=== PATIENT | male | born 1935 | race Asian ===

== ENCOUNTER 2018-08-14 08:00 | Outpatient (CLI) | payer MEDICARE, MEDICAID ==
[2018-08-14 19:43] LABS: BASOPHILS % (AUTO) 0.8 %; EOSINOPHILS % (AUTO) 0.7 %; HGB - HEMOGLOBIN 13.9 g/dL (14.0-18.0); LYMPHOCYTES # (AUTO) 1.4 10^3/uL (1.5-3.5); MEAN CORPUSCULAR HEMOGLOBIN 30.2 pg (27.0-31.0); MEAN CORPUSCULAR HGB CONC 32.8 g/dL (32.0-36.0); MEAN CORPUSCULAR VOLUME 92.2 fL (80.0-94.0); MEAN PLATELET VOLUME 8.8 fL (7.4-11.4); MONOCYTES # (AUTO) 0.3 10^3/uL (0.0-1.0); MONOCYTES % (AUTO) 5.7 %; NEUTROPHILS # (AUTO) 3.4 10^3/uL (1.5-6.6); NEUTROPHILS % (AUTO) 65.8 %; PLT - PLATELET COUNT 421 10^3/uL (130-450); RED BLOOD COUNT 4.58 10^6/uL (4.70-6.10); RED CELL DISTRIBUTION WIDTH 15.1 % (12.0-15.0); WHITE BLOOD COUNT 5.1 x10^3/uL (4.8-10.8)
[2018-08-14 20:03] LABS: PSA FREE 1.061 ng/mL (0.16-2.81)
[2018-08-14 20:04] LABS: PSA TOTAL 16.102 ng/mL (0.000-2.000)
[2018-08-14 20:10] LABS: CREATININE 1.2 mg/dL (0.6-1.2)
== END 2018-08-14 23:59 | disposition home or self-care (01) ==
LOC: LAB.N 08:00
PROVIDERS: ATTEND Physician Assistant Medical
DX: Z00.00 Encounter for general adult medical examination without abnormal findings (principal); N40.0 Benign prostatic hyperplasia without lower urinary tract symptoms
CPT/HCPCS: 36415; 80048; 84153; 84154; 84443; 85025

== ENCOUNTER 2020-03-08 08:00 | Outpatient (CLI) | payer MEDICARE, MEDICAID ==
[2020-03-08 18:17] LABS: BASOPHILS # (AUTO) 0.1 10^3/uL (0.0-0.1); BASOPHILS % (AUTO) 1.1 %; EOSINOPHILS # (AUTO) 0.1 10^3/uL (0.0-0.7); EOSINOPHILS % (AUTO) 1.1 %; HGB - HEMOGLOBIN 14.2 g/dL (14.0-18.0); LYMPHOCYTES # (AUTO) 1.8 10^3/uL (1.5-3.5); LYMPHOCYTES % (AUTO) 25.6 %; MEAN CORPUSCULAR HEMOGLOBIN 29.9 pg (27.0-31.0); MEAN CORPUSCULAR HGB CONC 32.6 g/dL (32.0-36.0); MEAN CORPUSCULAR VOLUME 91.8 fL (80.0-94.0); MEAN PLATELET VOLUME 10.1 fL (7.4-11.4); MONOCYTES # (AUTO) 0.4 10^3/uL (0.0-1.0); MONOCYTES % (AUTO) 5.5 %; NEUTROPHILS # (AUTO) 4.7 10^3/uL (1.5-6.6); NEUTROPHILS % (AUTO) 66.3 %; PLT - PLATELET COUNT 572 10^3/uL (130-450); RED BLOOD COUNT 4.75 10^6/uL (4.70-6.10); RED CELL DISTRIBUTION WIDTH 14.1 % (12.0-15.0); WHITE BLOOD COUNT 7.2 x10^3/uL (4.8-10.8)
[2020-03-08 18:51] LABS: ALBUMIN 3.8 g/dL (3.2-5.5); ALBUMIN/GLOBULIN RATIO 1.1 (1.0-2.2); BILIRUBIN,TOTAL 0.4 mg/dL (0.2-1.0); CREATININE 1.1 mg/dL (0.6-1.2); TOTAL PROTEIN 7.3 g/dL (6.7-8.2)
[2020-03-08 19:00] LABS: PSA FREE 1.173 ng/mL (0.16-2.81)
[2020-03-08 19:01] LABS: PSA TOTAL 16.542 ng/mL (0.000-2.000)
== END 2020-03-08 23:59 | disposition home or self-care (01) ==
LOC: LAB.WCP 08:00
PROVIDERS: ATTEND Nurse Practitioner
DX: N40.0 Benign prostatic hyperplasia without lower urinary tract symptoms (principal); Z79.899 Other long term (current) drug therapy
CPT/HCPCS: 36415; 80053; 84153; 84154; 85025

== ENCOUNTER 2021-03-15 08:00 | Outpatient (CLI) | payer MEDICARE, MEDICAID ==
[2021-03-15 11:28] LABS: BASOPHILS # (AUTO) 0.1 10^3/uL (0.0-0.1); BASOPHILS % (AUTO) 1.4 %; EOSINOPHILS # (AUTO) 0.2 10^3/uL (0.0-0.7); EOSINOPHILS % (AUTO) 2.5 %; HCT - HEMATOCRIT 45.2 % (42.0-52.0); HGB - HEMOGLOBIN 14.5 g/dL (14.0-18.0); LYMPHOCYTES # (AUTO) 2.8 10^3/uL (1.5-3.5); LYMPHOCYTES % (AUTO) 39.7 %; MEAN CORPUSCULAR HEMOGLOBIN 29.2 pg (27.0-31.0); MEAN CORPUSCULAR HGB CONC 32.1 g/dL (32.0-36.0); MEAN CORPUSCULAR VOLUME 91.1 fL (80.0-94.0); MEAN PLATELET VOLUME 9.9 fL (7.4-11.4); MONOCYTES # (AUTO) 0.4 10^3/uL (0.0-1.0); MONOCYTES % (AUTO) 5.9 %; NEUTROPHILS # (AUTO) 3.6 10^3/uL (1.5-6.6); NEUTROPHILS % (AUTO) 50.4 %; PLT - PLATELET COUNT 601 10^3/uL (130-450); RED BLOOD COUNT 4.96 10^6/uL (4.70-6.10); RED CELL DISTRIBUTION WIDTH 14.8 % (12.0-15.0); WHITE BLOOD COUNT 7.1 x10^3/uL (4.8-10.8)
[2021-03-15 11:44] LABS: ALBUMIN 3.7 g/dL (3.2-5.5); ALBUMIN/GLOBULIN RATIO 1.1 (1.0-2.2); BILIRUBIN,TOTAL 0.8 mg/dL (0.2-1.0); CREATININE 0.9 mg/dL (0.6-1.2); POTASSIUM 4.2 mmol/L (3.5-5.0); TOTAL PROTEIN 7.1 g/dL (6.7-8.2)
[2021-03-15 12:09] LABS: THYROID STIMULATING HORMONE 2.6 uIU/mL (0.34-5.60)
[2021-03-15 12:15] LABS: ESTIMATED AVERAGE GLUCOSE 120 mg/dL (70-100); HEMOGLOBIN A1c% 5.8 % (4.27-6.07)
== END 2021-03-15 23:59 | disposition home or self-care (01) ==
LOC: LAB.WCP 08:00
PROVIDERS: ATTEND Nurse Practitioner
DX: R53.83 Other fatigue (principal); R63.1 Polydipsia
CPT/HCPCS: 36415; 80053; 83036; 84443; 85025

== ENCOUNTER 2021-08-15 10:01 | Outpatient (CLI) | payer MEDICARE, MEDICAID ==
[2021-08-15 12:32] LABS: BASOPHILS # (AUTO) 0.1 10^3/uL (0.0-0.1); BASOPHILS % (AUTO) 1.4 %; EOSINOPHILS # (AUTO) 0.2 10^3/uL (0.0-0.7); EOSINOPHILS % (AUTO) 2.2 %; HCT - HEMATOCRIT 45.9 % (42.0-52.0); HGB - HEMOGLOBIN 14.7 g/dL (14.0-18.0); LYMPHOCYTES # (AUTO) 2.8 10^3/uL (1.5-3.5); LYMPHOCYTES % (AUTO) 38.4 %; MEAN CORPUSCULAR HEMOGLOBIN 28.5 pg (27.0-31.0); MEAN CORPUSCULAR VOLUME 89.1 fL (80.0-94.0); MEAN PLATELET VOLUME 9.8 fL (7.4-11.4); MONOCYTES # (AUTO) 0.4 10^3/uL (0.0-1.0); MONOCYTES % (AUTO) 5.2 %; NEUTROPHILS # (AUTO) 3.9 10^3/uL (1.5-6.6); NEUTROPHILS % (AUTO) 52.7 %; PLT - PLATELET COUNT 652 10^3/uL (130-450); RED BLOOD COUNT 5.15 10^6/uL (4.70-6.10); RED CELL DISTRIBUTION WIDTH 14.6 % (12.0-15.0); WHITE BLOOD COUNT 7.4 x10^3/uL (4.8-10.8)
== END 2021-08-15 10:02 | disposition home or self-care (01) ==
LOC: LAB.N 10:01
PROVIDERS: ATTEND Nurse Practitioner
DX: D75.839 Thrombocytosis, unspecified (principal)
CPT/HCPCS: 36415; 85025

== ENCOUNTER 2022-06-30 08:55 | Outpatient (CLI) | payer MEDICARE, MEDICAID ==
[2022-06-30 12:09] LABS: BASOPHILS # (AUTO) 0.1 10^3/uL (0.0-0.1); BASOPHILS % (AUTO) 1.6 %; EOSINOPHILS # (AUTO) 0.2 10^3/uL (0.0-0.7); HCT - HEMATOCRIT 44.5 % (42.0-52.0); LYMPHOCYTES # (AUTO) 3.9 10^3/uL (1.5-3.5); LYMPHOCYTES % (AUTO) 51.2 %; MEAN CORPUSCULAR HEMOGLOBIN 27.9 pg (27.0-31.0); MEAN CORPUSCULAR HGB CONC 31.5 g/dL (32.0-36.0); MEAN CORPUSCULAR VOLUME 88.8 fL (80.0-94.0); MEAN PLATELET VOLUME 10.2 fL (7.4-11.4); MONOCYTES # (AUTO) 0.5 10^3/uL (0.0-1.0); MONOCYTES % (AUTO) 5.9 %; NEUTROPHILS # (AUTO) 2.9 10^3/uL (1.5-6.6); NEUTROPHILS % (AUTO) 38.2 %; PLT - PLATELET COUNT 551 10^3/uL (130-450); RED BLOOD COUNT 5.01 10^6/uL (4.70-6.10); RED CELL DISTRIBUTION WIDTH 14.8 % (12.0-15.0); WHITE BLOOD COUNT 7.6 x10^3/uL (4.8-10.8)
[2022-06-30 13:11] LABS: ESTIMATED AVERAGE GLUCOSE 131 mg/dL (70-100); HEMOGLOBIN A1c% 6.2 % (4.27-6.07)
[2022-06-30 13:52] LABS: ALBUMIN 3.2 g/dL (3.2-5.5); ALKALINE PHOSPHATASE 62 IU/L (42-121); ALT ALANINE AMINOTRANSFERASE 19 IU/L (10-60); AST ASPARTATE AMINOTRANSFERASE 24 IU/L (10-42); BILIRUBIN,TOTAL 0.8 mg/dL (0.2-1.0); BUN - BLOOD UREA NITROGEN 25 mg/dL (6-20); CALCIUM 8.9 mg/dL (8.5-10.3); CARBON DIOXIDE - CO2 26 mmol/L (21-32); CHLORIDE 102 mmol/L (101-111); CHOL/HDL RATIO 3.4 (<5.0); CHOLESTEROL 192 mg/dL; GFR - MDRD 71 (>89); GLUCOSE 90 mg/dL (70-100); HDL CHOLESTEROL 56 mg/dL; LDL CHOLESTEROL,CALCULATED 126 mg/dL; LDL/HDL RATIO 2.3 (<3.6); POTASSIUM 4.2 mmol/L (3.5-5.0); SODIUM 139 mmol/L (135-145); TOTAL PROTEIN 6.4 g/dL (6.7-8.2); TRIGLYCERIDES 52 mg/dL; VLDL CHOLESTEROL 10 mg/dL
[2022-06-30 13:55] LABS: THYROID STIMULATING HORMONE 2.22 uIU/mL (0.34-5.60)
== END 2022-06-30 08:56 | disposition home or self-care (01) ==
LOC: LAB.N 08:55
PROVIDERS: ATTEND Nurse Practitioner
DX: R53.83 Other fatigue (principal); Z13.220 Encounter for screening for lipoid disorders; R73.03 Prediabetes; D47.3 Essential (hemorrhagic) thrombocythemia
CPT/HCPCS: 36415; 80053; 80061; 83036; 83721; 84443; 85025

== ENCOUNTER 2022-10-24 23:26 | Emergency (ER) | payer MEDICARE, MEDICAID ==
[2022-10-25 01:01] LABS: BILIRUBIN,URINE NEGATIVE (NEGATIVE); GLUCOSE, URINE (UA) NEGATIVE (NEGATIVE); KETONES,URINE (UA) NEGATIVE (NEGATIVE); LEUKOCYTE ESTERASE, URINE NEGATIVE (NEGATIVE); NITRITE,URINE NEGATIVE (NEGATIVE); OCCULT BLOOD,URINE NEGATIVE (NEGATIVE); PROTEIN,URINE NEGATIVE (NEGATIVE); UROBILINOGEN,URINE 0.2 (NORMAL) E.U./dL (NORMAL)
[2022-10-25 01:02] LABS: CLARITY,URINE CLEAR (CLEAR)
--- NOTE | 2022-10-25 01:18 | ED Physician Documentation ---
PD HPI MALE - Stated complaint Stated Complaint: MALE - Chief complaint Chief Complaint: Abd Pain - History obtained from History obtained from: Patient, Family (family member at bedside) - Additional information Additional information: Patient c/o 2 weeks of episodic difficulty urinating. He describes episodes of urge to urinate with suprapubic fullness and pain with difficulty initiating uri nation. Symptoms resolve with urination. Tonight, he had more severe suprapubic pain and pressure with inability to urinate, but was able to urinate once he came to ED (when providing urine sample) and, again, his symptoms have resolved by the time of this evaluation. He is asymptomatic on my H+P Review of Systems Constitutional: denies: Fever, Chills, Sweats GI: denies: Abdominal Pain (suprapubic pain (resolved) but not abdominal pain per se), Nausea, Vomiting : reports: Unable to Void (intermittently), Other (decreasing urinary stream over past several weeks). denies: Dysuria, Frequency, Incontinent, Hematuria PD PAST MEDICAL HISTORY - Past Medical History : Benign prostate hypertrophy - Present Medications Home Medications: Ambulatory Orders Medication Instructions Recorded Confirmed Finasteride [Proscar] 5 mg PO DAILY 10/24/22 10/24/22 - Allergies Allergies/Adverse Reactions: Allergies Allergy/AdvReac Type Severity Reaction Status Date / Time No Known Drug Allergies Allergy Verified 10/24/22 23:37 PD ED PE NORMAL - Vitals Vital signs reviewed: Yes - General General: Alert and oriented X 3, No acute distress, Well developed/nourished - Abdomen Abdomen: Soft, Non tender, Non distended - Back Back: No CVA TTP Results - Vitals Vitals: Oxygen O2 Source Room air - Labs Labs: Laboratory Tests 10/25/22 00:00 Urine Color YELLOW Urine Clarity CLEAR Urine pH 5.0 Ur Specific [place] 1.025 Urine Protein NEGATIVE Urine Glucose (UA) NEGATIVE Urine Ketones NEGATIVE Urine Occult Blood NEGATIVE Urine Nitrite NEGATIVE Urine Bilirubin NEGATIVE Urine Urobilinogen 0.2 (NORMAL) Ur Leukocyte Esterase NEGATIVE Ur Microscopic Review NOT INDICATED Urine Culture Comments NOT INDICATED PD Medical Decision Making - ED course Complexity details: considered differential, d/w patient, d/w family ED course: asymptomatic on this evaluation. HPI is s/o intermittent urinary retention. Bladder scan by ED RN result is 18. He is on finasteride. Instructed to follow up with PMD for reevaluation, might benefit from urology referral. UA performed in ED, normal results. Return precautions discussed. Departure - Departure Disposition: 01 Home, Self Care Clinical Impression: Dysuria Condition: Good Instructions: ED Dysuria Uncertain Cause Comments: The urinalysis was normal tonight. There is no evidence of a urinary tract infection. The bladder scan that was performed at the bedside showed that your bladder was empty. However, this was performed after you have urinated. As we discussed, one possible explanation is that you are having episodes of urinary retention. The most common cause of this would be an enlarged prostate. You should follow-up with your primary care provider, next available appointment, for reevaluation. Ideally, following up with a urologist would be the most appropriate specialist to see. If you have a urologist, try to arrange follow- up with them. If you do not have a urologist, you can go through your primary care provider for a referral if necessary. Certainly, if your symptoms return, you can always come back to the emergency department for reevaluation. Discharge Date/Time: 10/25/22 01:49
[2022-10-25 01:45] VITALS: BP 150/76
== END 2022-10-25 01:49 | disposition home or self-care (01) ==
LOC: ED 23:26
DX: R30.0 Dysuria (principal)
CPT/HCPCS: 81001; 81003; 87086; 99283

== ENCOUNTER 2022-11-21 17:08 | Emergency (ER) | payer MEDICARE, MEDICAID ==
--- NOTE | 2022-11-21 17:28 | ED Physician Documentation ---
PD HPI ABD PAIN - Stated complaint Stated Complaint: BLOATED STOMACH - Chief complaint Chief Complaint: Abd Pain - History obtained from History obtained from: Patient - Additional information Additional information: 87-year-old gentleman with history of what sounds like perforated peptic ulcer in 1984, otherwise very healthy. He has had 3 days of abdominal distention and discomfort associated with nausea but no vomiting. He had some decreased output from his bowels but that got better after using Metamucil. Denies weight loss but he is fairly thin. He is here with his son. He declines pain or nausea medicine on initial evaluation. PD PAST MEDICAL HISTORY - Past Medical History Past Medical History: Yes Cardiovascular: None Respiratory: None Neuro: None Endocrine/Autoimmune: None GI: Ulcers : Benign prostate hypertrophy HEENT: None Psych: None Musculoskeletal: None Derm: None - Past Surgical History Past Surgical History: Yes General: Other - Present Medications Home Medications: Ambulatory Orders Medication Instructions Recorded Confirmed Finasteride [Proscar] 5 mg PO DAILY 10/24/22 11/21/22 Tamsulosin [Flomax] 0.4 mg PO DAILY 11/21/22 11/21/22 - Allergies Allergies/Adverse Reactions: Allergies Allergy/AdvReac Type Severity Reaction Status Date / Time No Known Drug Allergies Allergy Verified 11/21/22 17:12 - Social History Does the pt smoke?: No Smoking Status: Never smoker Does the pt drink ETOH?: No Does the pt have substance abuse?: No - Immunizations Immunizations are current?: Yes PD ED PE NORMAL - Vitals Vital signs reviewed: Yes - General General: Alert and oriented X 3, No acute distress, Other (Thin elderly gentle man appears stated age) - Cardiac Cardiac: RRR, No murmur - Respiratory Respiratory: No respiratory distress, Clear bilaterally - Abdomen Abdomen: Normal bowel sounds, Other (Distended and firm especially lower without specific tenderness.) - Derm Derm: Normal color, Warm and dry - Extremities Extremities: No edema, No calf tenderness / cord - Neuro Neuro: Alert and oriented X 3, Normal speech Results - Vitals Vitals: Vital Signs - 24 hr 11/21/22 17:12 Temperature 36.9 C Heart Rate 89 Respiratory 16 Rate Blood Pressure 152/90 H O2 Saturation 98 Oxygen O2 Source Room air - Labs Labs: Laboratory Tests 11/21/22 11/21/22 17:32 17:32 WBC 6.7 RBC 5.12 Hgb 14.2 Hct 44.2 MCV 86.3 MCH 27.7 MCHC 32.1 RDW 15.0 Plt Count 537 H MPV 9.5 Neut # (Auto) 3.2 Lymph # (Auto) 2.8 Lane # (Auto) 0.4 Eos # (Auto) 0.2 Baso # (Auto) 0.1 Absolute Nucleated RBC 0.00 Nucleated RBC % 0.0 Sodium 137 Potassium 4.1 Chloride 103 Carbon Dioxide 24 Anion Gap 10.0 BUN 27 H Creatinine 1.3 H Estimated GFR (MDRD) 52 L Glucose 112 H Calcium 8.3 L Total Bilirubin 0.5 AST 33 ALT 25 Alkaline Phosphatase 56 Total Protein 6.4 L Albumin 2.9 L Globulin 3.5 Albumin/Globulin Ratio 0.8 L Lipase 35 - Rads (name of study) CT abdomen pelvis with IV contrast demonstrates ascites with possible omental nodularity concerning for malignant process. Relevant Findings:: Final report received, EMP independent interpretation of test Procedures - Paracentesis - Major Preparation: Consent obtained, Ultrasound guidance Location: LLQ Technique: Other (18-gauge needle collecting 40 mL of yellow ascites after local anesthetic and ChloraPrep. Patient tolerated well.) Fluid: Sent for cytology PD Medical Decision Making - ED course ED course: 87-year-old gentleman presents with bloating. He is found to have new onset ascites. He is not a drinker nor a smoker. That said this is very concerning for malignant ascites. No evidence of liver disease on labs. After informed consent a diagnostic paracentesis was done to be sent for pathology to speed up diagnosis. Departure - Departure Disposition: 01 Home, Self Care Clinical Impression: Ascites Qualifiers: Ascites type: malignant Qualified Code(s): R18.0 - Malignant ascites Condition: Good Record reviewed to determine appropriate education?: Yes Instructions: ED Ascites Follow-Up: Ruthann Bardales ARNP [Provider Admit Priv/Credential] - Comments: You were seen today for abdominal swelling which unfortunately we found that you have fluid on your abdomen which is most likely related to a cancerous process. I did send some of the fluid to the pathologist and you can follow-up with your nurse practitioner in about a week to discuss results and if cancer is found a referral to oncology. Return for new or worsening symptoms.
[2022-11-21 17:38] LABS: BASOPHILS # (AUTO) 0.1 10^3/uL (0.0-0.1); BASOPHILS % (AUTO) 1.5 %; EOSINOPHILS # (AUTO) 0.2 10^3/uL (0.0-0.7); EOSINOPHILS % (AUTO) 3.1 %; HCT - HEMATOCRIT 44.2 % (42.0-52.0); HGB - HEMOGLOBIN 14.2 g/dL (14.0-18.0); LYMPHOCYTES # (AUTO) 2.8 10^3/uL (1.5-3.5); LYMPHOCYTES % (AUTO) 41.2 %; MEAN CORPUSCULAR HEMOGLOBIN 27.7 pg (27.0-31.0); MEAN CORPUSCULAR HGB CONC 32.1 g/dL (32.0-36.0); MEAN CORPUSCULAR VOLUME 86.3 fL (80.0-94.0); MEAN PLATELET VOLUME 9.5 fL (7.4-11.4); MONOCYTES # (AUTO) 0.4 10^3/uL (0.0-1.0); MONOCYTES % (AUTO) 6.4 %; NEUTROPHILS # (AUTO) 3.2 10^3/uL (1.5-6.6); NEUTROPHILS % (AUTO) 47.5 %; PLT - PLATELET COUNT 537 10^3/uL (130-450); RED BLOOD COUNT 5.12 10^6/uL (4.70-6.10); WHITE BLOOD COUNT 6.7 x10^3/uL (4.8-10.8)
[2022-11-21 17:49] LABS: ALBUMIN 2.9 g/dL (3.2-5.5); ALBUMIN/GLOBULIN RATIO 0.8 (1.0-2.2); BILIRUBIN,TOTAL 0.5 mg/dL (0.2-1.0); CALCIUM 8.3 mg/dL (8.5-10.3); CREATININE 1.3 mg/dL (0.6-1.2); POTASSIUM 4.1 mmol/L (3.5-5.0); TOTAL PROTEIN 6.4 g/dL (6.7-8.2)
[2022-11-21] MEDS ORDERED: iohexoL-300 100 ML VIAL ONE (17:59)
[2022-11-21] MEDS ORDERED: iohexoL-300 100 ML VIAL IVP ONE (18:29)
--- NOTE | 2022-11-21 18:33 | CT Report ---
PROCEDURE: ABDOMEN/PELVIS W INDICATIONS: IV only abd pain CONTRAST: 100mL Omni 300 TECHNIQUE: After the administration of contrast, 5 mm thick sections acquired from the diaphragms to the symphys is. 5 mm thick coronal and sagittal reformats were acquired. For radiation dose reduction, the foll owing was used: automated exposure control, adjustment of mA and/or kV according to patient size. COMPARISON: FINDINGS: Image quality: Excellent. Lung bases and heart: Small bilateral pleural effusions. Liver: The liver has a normal appearance. There is moderate ascites throughout the abdomen. Gallbladder and biliary tree: No stones. No wall thickening or pericholecystic fluid. Spleen: No splenomegaly. Pancreas: No pancreatic ductal dilation. Adrenals: No adrenal nodule. Kidneys and ureters: No hydronephrosis. No renal cystic lesion which requires follow up. No solid mas s. Bowel and peritoneum: No bowel distension. No pathologic free fluid. The omentum appears slightly nod ular which is suspicious for peritoneal carcinomatosis, however the patient also has no intraperitone al fat in the omentum is suspended in the ascites. Lymph nodes: No central or retroperitoneal adenopathy. Vessels: No infrarenal aortic aneurysm. PELVIS Reproductive organs: Unremarkable. Bladder: No abnormal wall thickening, accounting for underdistension. Pelvic lymph nodes: No pelvic adenopathy by size criteria. Bones: No aggressive osseous abnormality. Other: No significant ventral or inguinal hernia. IMPRESSION: 1. New onset ascites and new small bilateral pleural effusions. 2. Equivocal omental nodularity as above. Consider sending ascites for cytology. Reviewed by: Sebastian Serrano on 11/21/2022 5:32 PM CHETNA Approved by: Sebastian Serrano on 11/21/2022 5:32 PM ILCHUN Station ID: [id number]
[2022-11-21] MEDS ORDERED: LIDOCAINE 1%-EPI 1:100000 20 ML MDV SUBQ STA (18:49)
[2022-11-21 19:31] VITALS: BP 137/85
--- NOTE | 2022-11-27 17:04 | ED Physician Documentation ---
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 He handed the phone to his son and the news was given to the son who understands. They have an appointment with primary on Sunday, 2 days from today and presume they will get referred to oncology.
== END 2022-11-21 19:29 | disposition home or self-care (01) ==
LOC: ED 17:08
DX: R18.8 Other ascites (principal); Z79.899 Other long term (current) drug therapy
CPT/HCPCS: 36415; 49082; 74177; 80053; 83690; 85025; 99284; Q9967

== ENCOUNTER 2022-11-24 08:00 | Outpatient (CLI) | payer MEDICARE, MEDICAID ==
[2022-11-24 17:02] LABS: BILIRUBIN,URINE NEGATIVE (NEGATIVE); GLUCOSE, URINE (UA) NEGATIVE (NEGATIVE); KETONES,URINE (UA) NEGATIVE (NEGATIVE); LEUKOCYTE ESTERASE, URINE NEGATIVE (NEGATIVE); NITRITE,URINE NEGATIVE (NEGATIVE); OCCULT BLOOD,URINE NEGATIVE (NEGATIVE); PROTEIN,URINE NEGATIVE (NEGATIVE); UROBILINOGEN,URINE 0.2 (NORMAL) E.U./dL (NORMAL)
[2022-11-24 17:05] LABS: CLARITY,URINE CLEAR (CLEAR)
[2022-11-24 17:44] LABS: RBC,URINE 0-5 /HPF (0-5); WBC,URINE 0-3 /HPF (0-3)
[2022-11-24 17:45] LABS: BACTERIA,URINE Rare /HPF (None Seen); SQUAMOUS EPITHELIAL CELL,UR NONE SEEN (<= Few)
== END 2022-11-24 23:59 | disposition home or self-care (01) ==
LOC: LAB 08:00
PROVIDERS: ATTEND Urology
DX: N40.0 Benign prostatic hyperplasia without lower urinary tract symptoms (principal)
CPT/HCPCS: 81001; 87086

== ENCOUNTER 2022-11-30 18:50 | Outpatient (CLI) | payer MEDICARE, MEDICAID ==
[2022-11-30] MEDS ORDERED: iohexoL-300 100 ML VIAL ONE (19:15)
[2022-11-30] MEDS ORDERED: iohexoL-300 100 ML VIAL IVP ONE (20:54)
--- NOTE | 2022-11-30 23:59 | CT Report ---
PROCEDURE: CHEST W INDICATIONS: ADENOCARCINOMA CONTRAST: Omni 300 100ml TECHNIQUE: After the administration of intravenous contrast, 1 mm axial images were acquired from the pulmonary apices through the posterior costophrenic angles. Axial 5 mm soft tissue kernel reconstructions were performed as well as 8 mm axial MIP and coronal and sagittal 5 mm reformations. For radiation dose reduction, the following was used: automated exposure control, adjustment of mA and/or kV according to patient size. COMPARISON: None. FINDINGS: Image quality: Excellent. Lungs and pleura: Consolidative radiopacities and volume loss are present at the base of the right mi ddle lobe. A central mass cannot be excluded probable atelectasis is present at the lingular base. Th ere are small low density bilateral pleural effusions. Mild compressive atelectasis is present in the dependent lungs bilaterally. Mediastinum: Heart size is normal. No pericardial effusion. No large vessel abnormality. No mediastin al adenopathy by size criteria. Chest wall and lower neck: Thyroid is unremarkable. No axillary or supraclavicular adenopathy by size . Bones: No aggressive osseous abnormality. Upper Abdomen: There is marked low-density abdominal ascites visualized within the upper abdomen. IMPRESSION: 1. Consolidative radiodense passive the within the inferior right middle lobe. Differential considera tions include infection, aspiration, and neoplasm. Short interval follow-up recommended to ensure res olution. Alternatively, PET CT could be used to evaluate for increased metabolic activity. Reviewed by: Asmita Petersen MD on 11/30/2022 11:57 PM PDT Approved by: Asmita Petersen MD on 11/30/2022 11:57 PM PDT Station ID: [id number]
== END 2022-11-30 18:51 | disposition home or self-care (01) ==
LOC: DI 18:50
PROVIDERS: ATTEND Physician Assistant
DX: C80.1 Malignant (primary) neoplasm, unspecified (principal); R18.0 Malignant ascites
CPT/HCPCS: 71260; Q9967

== ENCOUNTER 2022-12-27 14:02 | Emergency (ER) | payer MEDICARE, MEDICAID ==
[2022-12-27 14:12] VITALS: BP 137/99; O2SAT 98
--- NOTE | 2022-12-27 14:25 | ED Physician Documentation ---
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 No difficulty breathing. No significant abdominal pain. He states that his stomach feels full when he lies flat. No fevers. No chills. He is planning to go on hospice next week. Last paracentesis was 1 week ago at [facility]. Review of Systems Constitutional: denies: Fever, Chills Cardiac: denies: Chest pain / pressure Respiratory: denies: Dyspnea, Cough, Wheezing GI: denies: Vomiting, Diarrhea Musculoskeletal: denies: Neck pain, Back pain Neurologic: denies: Headache PD PAST MEDICAL HISTORY - Past Medical History Past Medical History: Yes Cardiovascular: None Respiratory: None Neuro: None Endocrine/Autoimmune: None GI: Ulcers : Benign prostate hypertrophy HEENT: None Psych: None Musculoskeletal: None Derm: None - Past Surgical History Past Surgical History: Yes General: Other - Present Medications Home Medications: Ambulatory Orders Medication Instructions Recorded Confirmed Finasteride [Proscar] 5 mg PO DAILY 10/24/22 11/21/22 Tamsulosin [Flomax] 0.4 mg PO DAILY 11/21/22 11/21/22 - Allergies Allergies/Adverse Reactions: Allergies Allergy/AdvReac Type Severity Reaction Status Date / Time No Known Drug Allergies Allergy Verified 11/21/22 17:12 - Social History Does the pt smoke?: No Smoking Status: Never smoker Does the pt drink ETOH?: No Does the pt have substance abuse?: No - Immunizations Immunizations are current?: Yes - POLST Patient has POLST: No PD ED PE NORMAL - Vitals Vital signs reviewed: Yes - General General: Alert and oriented X 3, No acute distress - HEENT HEENT: Moist mucous membranes - Neck Neck: Supple, no meningeal sign - Cardiac Cardiac: RRR, Strong equal pulses - Respiratory Respiratory: No respiratory distress, Clear bilaterally - Abdomen Abdomen: Soft, Non tender, Other (mild distention, soft. no tense ascites) - Derm Derm: Warm and dry - Neuro Neuro: Alert and oriented X 3 Results - Vitals Vitals: Vital Signs - 24 hr 12/27/22 12/27/22 12/27/22 14:03 14:24 14:55 Temperature 37.2 C Heart Rate 51 L Respiratory 16 18 17 Rate Blood Pressure 137/99 H O2 Saturation 98 Oxygen O2 Source Room air PD Medical Decision Making - ED course Complexity details: considered differential, d/w patient, d/w family ED course: Patient with chronic malignant ascites. Abdomen is soft, not significantly distended. No respiratory distress. Recommend follow-up with radiology for outpatient paracentesis. Recommend they contact his primary care provider to have this scheduled. I did attempt to contact his PCP and was sent to [facility]. Patient and family counseled regarding signs and symptoms for which I believe and urgent re-evaluation would be necessary. Patient with good understanding of and agreement to plan and is comfortable going home at this time This document was made in part using voice recognition software. While efforts are made to proofread this document, sound alike and grammatical errors may occur. Departure - Departure Disposition: 01 Home, Self Care Clinical Impression: Ascites Qualifiers: Ascites type: malignant Qualified Code(s): R18.0 - Malignant ascites Condition: Good Instructions: ED Ascites Follow-Up: Ruthann Bardales ARNP [Primary Care Provider] - Comments: I left a message for Ruthann Bardales today, please contact the clinic today to have them send over a referral for a paracentesis to radiology. They will get this usually scheduled within 1 to 2 days. Forms: PCP List Discharge Date/Time: 12/27/22 15:00
== END 2022-12-27 15:00 | disposition home or self-care (01) ==
LOC: ED 14:02
DX: C80.1 Malignant (primary) neoplasm, unspecified (principal); R18.0 Malignant ascites
CPT/HCPCS: 99281; 99283